=== PATIENT | male | born 1955 | race Caucasian/White ===

== ENCOUNTER → 2016-07-12 | Outpatient (CLI) | payer OTHER ==
[~2016-07-12] MED LIST: ACZONE60 GM TOP; ASPIRIN LO-DOSE81 MG PO; CIALIS5 MG PO; FETZIMA120 MG PO; KLONOPIN1 MG PO; LOPRESSOR50 MG PO; MELATONIN5 MG PO; OCUVITE SOFTGE1 EACH PO; OMEGA-3 EC SOF1 EACH PO; PROTOPIC60 GM TOP; SOOLANTRA30 GM TOP; THERA-VITE W/ B1 TAB PO; VITAMIN A8000 UNIT PO; VITAMIN D-32000 UNI1 PO; ZYRTEC10 MG PO
[2016-07-12 17:01] LABS: ALBUMIN 3.5 gm/dL (3.5-5.0)
[2016-07-12 17:06] LABS: TOTAL BILIRUBIN 0.8 mg/dL (0.0-1.5)
== END | disposition disaster alternative care site (69) ==
LOC: LNHI 16:39
PROVIDERS: Internal Medicine Interventional Cardiology
DX: R07.9 Chest pain, unspecified (principal); R00.2 Palpitations; R53.83 Other fatigue

== ENCOUNTER 2016-07-20 06:02 | Outpatient (CLI) | payer OTHER ==
[~2016-07-20] VITALS: Ht 154.9 cm; Wt 82.3 kg
--- NOTE | ~2016-07-20 | CATH ---
Cardiac Diagnostic Report Demographics Patient Name BERTA Saucedo Gender Male Date of 1955 Age 61 year(s) Patient Number [id number] Date of Study 07/20/2016 Visit Number [id number] Room Number G63[address] [place] [id number] Ht 154.94 cm Wt 82.3 kg Referring Elaine Estevez MD Primary Physician Physician Performing Yerra Secondary Physician Physician [facility]co Diagnostic [facility] Assisting Physician Physician Fco Interventional Physician Fabrication Machine Operator Physician Findings and Conclusions Diagnostic Findings and Conclusion Rt dominant L Main: No significant epicardial disease LAD: Mid 10-20% stenosis L Cx: Mid 10-20% stenosis RCA: No significant epicardial disease Diagnostic Recommendations Continue medical therapy and risk factor modification Procedure Description The patient was brought to the diagnostic cardiac catheterization-EP laboratory in the fasting, non-sedated state. Informed consent was obtained in the written and verbal form after the risks and benefits were explained. The patient had no further questions and agreed to proceed. The planned puncture-incision site(s) were shaved and prepped with ChloraPrep and draped in the usual sterile manner. Conscious sedation, supplemental oxygen, and pain control medications were delivered by a registered nurse under physician guidance. Surface ECG rhythm, blood pressure measurement, and pulse oximetry were monitored throughout the procedure. Arterial access. The access site on right wrist was infiltrated with lidocaine. The vessel was entered with the Seldinger technique. A sheath was advanced into the vessel and used for catheter placement. Selective right coronary angiography. A catheter was advanced into the right coronary vessel ostium under fluoroscopic guidance. Contrast was injected by hand. Images were obtained in multiple projections. Selective left coronary angiography. A catheter was advanced into the left coronary vessel ostium under Fluoroscopic guidance. Contrast was injected by hand. Images were obtained in multiple projections. Arterial artery hemostasis was achieved. The patient was transferred to a regular nursing floor via cart accompanied by a nurse. The patient left the laboratory in stable condition. Diagnostic Cath Status: Elective Procedure Procedure Type Diagnostic procedure:Angiography:, Coronary Angios Indications: Unstable angina and Positive Nuclear: Low. The procedure was explained in detail to the patient. Risks, complications and alternative treatments were reviewed. Written consent was obtained. Medications Reviewed with Patient prior to Procedure. Angiographic Findings Dominance: Right Cardiac Arteries and Lesion Findings LMCA: Normal (0% Stenosis). LAD: Diagonal is normal Lesion on Mid LAD: Mid subsection.20% stenosis . LCx: Normal (0% Stenosis).OM is normal RCA: Normal (0% Stenosis).PL and PDA are normal Coronary Tree Procedure Data Procedure Date Date: 07/20/2016Start: 08:39 AMEnd: 09:35 AM Entry Locations - Retrograde Percutaneous access was performed through the Right Radial artery (Primary location). A 6 Fr sheath was inserted. Hemostasis was successfully obtained using Mechanical Compression. Closure Comments: R Band - 13mLs of air. Procedure Medications Order and Administration + + + + + !Time !Medication !Dosage !Route ! + + + + + !07/20/2016 08:28 AM !Fentanyl !50 mcg !I.V. ! + + + + + !07/20/2016 08:34 AM !Versed !1 mg !I.V. ! + + + + + !07/20/2016 09:13 AM !Radial Nitroglycerin !200 mcg !I.A. ! + + + + + !07/20/2016 09:14 AM !Radial Verapamil !1.25 mg !I.A. ! + + + + + !07/20/2016 09:22 AM !Heparin (ACC_3) !4000 units !I.V. bolus ! + + + + + Devices Used - A5 Fr. BS JR 4 Diag. Catheterwas used for:Right coronary angiography. - A5 Fr. BS JL 3.5 Diag. Catheterwas used for:Left coronary angiography. Contrast Material - Isovue 58661 ml Fluoroscopy Time: Diagnostic: 4:00 minutes. Total: 4:00 minutes. Fluoroscopy Dose: Diagnostic: 386 mGy. Total: 386 mGy. Estimated Blood Loss: 10 ml. Medical History Performed Procedures and Imaging Results - Stress testing with SPECT MPIwas performed. Results were: Positive. Risk/Extent of ischemia was: Low risk. Allergies - No known allergies. Risk Factors The patient risk factors include:family history of premature CAD, last creatinine: 0.9 mg/dl and creatinine clearance: 101.6 ml/min. Admission Data Admission Date: 07/20/2016 Admission Time: 06:02 AM Admit Source: Other Insurance Payors: Private health insurance. Admission Medications + +------+------+ + + + + !Medication !Dosage!Times !Last !Last !Administered !Comments ! ! ! !Per !Delivery !Delivery ! ! ! ! ! !Day !Date !Time ! ! ! + +------+------+ + + + + !Aspirin ! ! ! ! ! ! ! !(any) ! ! ! ! ! ! ! + +------+------+ + + + + !Beta ! ! ! ! ! ! ! !Corky ! ! ! ! ! ! ! !(any) ! ! ! ! ! ! ! + +------+------+ + + + + Clinical Evaluation Leading to Procedure - The patient's CAD presentation was assessed as: Unstable angina. - The patient's anginal syndrome during the past two weeks was assessed as: Class II according to the [place] Cardiovascular [employer] Classification System (CCS). Anti-anginal medications were prescribed during the past two weeks. The medication is: Beta Blockers. [facility] . Ejection Fraction - Method: Radionucleotide. EF%: 64. Hemodynamics Condition: Rest O2 Consumption: Estimated: 204.42Heart Rate: 58 bpm Pressures (mmHg) +-----+ + !Site !Pressure ! +-----+ + !AO !/ (92) ! +-----+ + !AO !/ (91) ! +-----+ + Shunts Oxygen Values O2 Capacity 216.24 O2 Consumption 204.42 Signatures dtt: FCO ROMANO dtd: 07/20/16 0839 Physician Self Edit
[2016-07-20 06:59] LABS: BASOPHIL # 0.1 K/uL (0.0-0.2); EOSINOPHIL # 0.3 K/uL (0.0-0.5); EOSINOPHIL % 4.7 %; HEMATOCRIT 45.8 % (37.0-53.0); HEMOGLOBIN 15.9 g/dL (11.0-16.0); IMMATURE GRANULOCYTE % 0.2 %; LYMPHOCYTE # 1.8 K/uL (0.8-4.0); LYMPHOCYTE % 30.9 %; MCH 32.2 pg (27.0-34.0); MCHC 34.7 gm/dL (32.0-36.5); MCV 92.7 fl (83.0-98.0); MONOCYTE # 0.5 K/uL (0.0-1.0); MONOCYTE % 8.2 %; MPV 10.2 fl (9.4-12.4); NEUTROPHIL # (ANC) 3.2 K/uL (1.4-9.0); NRBC % 0 /100WBC (0-0.00); PLATELET COUNT 228 K/uL (150-450); RBC 4.94 M/uL (3.50-5.50); RDW-CV 11.6 % (11.9-14.6); WBC 5.7 K/uL (4.0-11.0)
[2016-07-20 07:09] LABS: PROTIME 10.7 SECONDS (9.6-11.1); PTT 26 SECONDS (25-32)
[2016-07-20 07:19] LABS: ALBUMIN 3.4 gm/dL (3.5-5.0); ALK PHOS 95 IU/L (33-138); ALT 37 IU/L (12-78); BLOOD UREA NITROGEN 15 mg/dL (6-24); CALCIUM 8.7 mg/dL (8.5-10.5); CHLORIDE 106 mMol/L (96-110); CO2 30 mMol/L (22-32); CREATININE 0.9 mg/dL (0.6-1.3); SODIUM 141 mMol/L (135-145); TOTAL PROTEIN 6.8 g/dL (6.0-8.4)
[2016-07-20 07:20] LABS: ANION GAP 9.6 (10.0-19.0); AST 27 IU/L (10-40); ESTIMATED GFR (MDRD EQUATION) > 60; POTASSIUM 4.6 mMol/L (3.7-5.1); TOTAL BILIRUBIN 1.2 mg/dL (0.0-1.5)
== END 2016-07-20 13:50 | disposition disaster alternative care site (69) ==
LOC: GPCU 06:02 → GCAT 06:02
PROVIDERS: Internal Medicine Interventional Cardiology
PROC: B2111ZZ Fluoroscopy of Multiple Coronary Arteries using Low Osmolar Contrast (ICD-10-PCS; principal; 2016-07-20)
DX: I25.10 Atherosclerotic heart disease of native coronary artery without angina pectoris (principal); I10 Essential (primary) hypertension; R00.2 Palpitations; Z82.49 Family history of ischemic heart disease and other diseases of the circulatory system; F32.9 Major depressive disorder, single episode, unspecified; G25.0 Essential tremor; G25.81 Restless legs syndrome; L71.9 Rosacea, unspecified; F41.9 Anxiety disorder, unspecified; Z79.1 Long term (current) use of non-steroidal anti-inflammatories (NSAID); Z79.51 Long term (current) use of inhaled steroids; Z79.899 Other long term (current) drug therapy
CPT/HCPCS: J1644; J2001; J2250; J3010; J7030

== ENCOUNTER → 2016-08-16 | Outpatient (CLI) | payer OTHER ==
[2016-08-16 11:35] LABS: ANION GAP 10.3 (10.0-19.0); BLOOD UREA NITROGEN 17 mg/dL (6-24); CALCIUM 8.6 mg/dL (8.5-10.5); CHLORIDE 105 mMol/L (96-110); CO2 31 mMol/L (22-32); ESTIMATED GFR (MDRD EQUATION) > 60; POTASSIUM 4.3 mMol/L (3.7-5.1); SODIUM 142 mMol/L (135-145)
== END | disposition disaster alternative care site (69) ==
LOC: LNHI 11:10
PROVIDERS: Internal Medicine Interventional Cardiology
DX: R07.9 Chest pain, unspecified (principal); R53.83 Other fatigue; R00.2 Palpitations